=== PATIENT | male | born 1990 | race Caucasian/White ===

== ENCOUNTER 2019-07-09 11:12 | Emergency (ER) | payer OTHER ==
[~2019-07-09] VITALS: Ht 172.7 cm; Wt 74.8 kg
[2019-07-09 11:51] LABS: ABSOLUTE LYMPHOCYTES 0.5 thou/uL (0.8-5.3); ABSOLUTE MONOCYTES 0.4 thou/uL (0.0-1.2); ABSOLUTE NEUTROPHILS 3.3 thou/uL (1.6-8.1); BASOPHILS 0.6 %; EOSINOPHILS 0.4 %; HEMATOCRIT 43.5 % (42.0-52.0); HEMOGLOBIN 15.2 gm/dL (14.0-18.0); LYMPHOCYTES 11.8 %; MCH 29.5 pg (26.0-34.0); MCHC 34.9 g/dL (28.0-37.0); MCV 84.4 fL (80.0-100.0); MONOCYTES 10.1 %; MPV 8.3 fl. (7.2-11.1); NUCLEATED RBCS 0 /100WBC; PLATELET COUNT* 162 thou/uL (150-400); POLYS 77.1 %; RBC 5.16 mil/uL (4.50-6.00); RDW-CV 13.1 % (10.5-14.5); WBC 4.3 thou/uL (4.0-11.0)
[2019-07-09 11:57] LABS: CREATININE 1.3 mg/dL (0.6-1.3); POTASSIUM 3.6 mmol/L (3.5-5.1)
[2019-07-09 12:09] LABS: ALBUMIN 4.1 g/dL (3.4-5.0); TOTAL BILIRUBIN 0.4 mg/dL (<0.1-1.0); TOTAL PROTEIN 7.6 g/dL (6.4-8.2)
[2019-07-09 13:03] VITALS: BP 136/70
--- NOTE | 2019-07-10 10:29 | EKG ---
[place] [address] ELECTROCARDIOGRAM REPORT Name: KIRTI SEGUNDO Room: [facility]#: [id number] Admission: 07/09/19 Attend Phys: Discharge: 07/09/19 Date of : [birth year] Date of Service: 07/09/19 1226 Report #: [id number] THIS REPORT FOR: //name// [facility] ED Test Date: 2019-07-09 Test Time: 12:26:00 Pat Name: KIRTI SEGUNDO Department: Room: Gender: Binding Stitcher: [facility] : 1990 Requested By: Maximilian David Order Number: [id number] MD: Butch Irving Measurements Intervals [place] Rate: 81 P: 54 [place]: 148 QRS: 50 QRSD: 88 T: -34 QT: 373 QTc: 433 Interpretive Statements Sinus rhythm Borderline T abnormalities, inferior leads Baseline wander in lead(s) V2,V3 No previous ECG available for comparison Electronically Signed On 07-10-2019 10:28:26 CDT by Butch Irving [email or web address] <ELECTRONICALLY SIGNED> By: Butch Irving MD, [facility] 07/10/19 1028 1226 1226 Butch Irving MD, [facility] /EPI
--- NOTE | 2019-07-10 10:29 | EKG ---
[place] [address] ELECTROCARDIOGRAM REPORT Name: KIRTI SEGUNDO Room: [facility]#: [id number] Admission: 07/09/19 Attend Phys: Discharge: 07/09/19 Date of : [birth year] Date of Service: 07/09/19 1216 Report #: [id number] THIS REPORT FOR: //name// [facility] ED Test Date: 2019-07-09 Test Time: 12:16:21 Pat Name: KIRTI SEGUNDO Department: Room: Gender: Inside Sales Manager: [facility] : 1990 Requested By: Maximilian David Order Number: [id number] MD: Butch Irving Measurements Intervals [place] Rate: 90 P: 52 MO: 131 QRS: 60 QRSD: 94 T: 32 QT: 366 QTc: 448 Interpretive Statements Sinus rhythm Atrial premature complex Borderline T abnormalities, anterior leads No previous ECG available for comparison Electronically Signed On 07-10-2019 10:28:06 CDT by Butch Irving [email or web address] <ELECTRONICALLY SIGNED> By: Butch Irving MD, [facility] 07/10/19 1028 15 15 Butch Irving MD, FACC /EPI
== END 2019-07-09 13:03 | disposition home or self-care (01) ==
LOC: M.ERS 11:12
PROVIDERS: Emergency Medicine Emergency Medical Services
DX: R53.83 Other fatigue (principal)

== ENCOUNTER 2019-08-24 11:33 | Emergency (ER) | payer OTHER ==
[~2019-08-24] VITALS: Ht 172.7 cm; Wt 68.0 kg
[2019-08-24 13:09] LABS: ABSOLUTE LYMPHOCYTES 1.5 thou/uL (0.8-5.3); ABSOLUTE MONOCYTES 0.4 thou/uL (0.0-1.2); ABSOLUTE NEUTROPHILS 3.2 thou/uL (1.6-8.1); BASOPHILS 0.8 %; EOSINOPHILS 0.4 %; LYMPHOCYTES 29.6 %; MCH 29.8 pg (26.0-34.0); MCHC 34.8 g/dL (28.0-37.0); MCV 85.6 fL (80.0-100.0); MONOCYTES 7.4 %; MPV 9.7 fl. (7.2-11.1); NUCLEATED RBCS 0 /100WBC; PLATELET COUNT* 188 thou/uL (150-400); POLYS 61.8 %; RBC 5.37 mil/uL (4.50-6.00); RDW-CV 13.3 % (10.5-14.5); WBC 5.2 thou/uL (4.0-11.0)
[2019-08-24 13:16] LABS: CALCIUM 9.4 mg/dL (8.5-10.1); CREATININE 1.6 mg/dL (0.6-1.3); POTASSIUM 3.9 mmol/L (3.5-5.1)
[2019-08-24 13:17] LABS: APTT 25.5 Seconds (25.0-31.3); INR 1.1; PROTIME 10.8 Seconds (9.20-11.50)
[2019-08-24 13:27] LABS: ALBUMIN 4.5 g/dL (3.4-5.0); TOTAL BILIRUBIN 1.3 mg/dL (<0.1-1.0); TOTAL PROTEIN 7.8 g/dL (6.4-8.2)
[2019-08-24 14:21] LABS: URINE BILIRUBIN NEGATIVE (Negative); URINE BLOOD NEGATIVE (Negative); URINE CLARITY CLEAR; URINE COLOR YELLOW; URINE GLUCOSE-RANDOM NEGATIVE (Negative); URINE KETONES NEGATIVE (Negative); URINE LEUKOCYTES-REFLEX NEGATIVE (Negative); URINE NITRITE-REFLEX NEGATIVE (Negative); URINE PROTEIN NEGATIVE (Negative); URINE UROBILINOGEN 0.2 E.U./dl (0.2-1.0)
[2019-08-24 14:26] VITALS: BP 115/80
--- NOTE | 2019-08-24 14:32 | EKG ---
[place] [address] ELECTROCARDIOGRAM REPORT Name: KIRTI SEGUNDO Room: [facility]#: [id number] Admission: 08/24/19 Attend Phys: Discharge: 08/24/19 Date of : [birth year] Date of Service: 08/24/19 1151 Report #: [id number] THIS REPORT FOR: //name// [facility] ED Test Date: 2019-08-24 Test Time: 11:51:17 Pat Name: KIRTI SEGUNDO Department: Room: Gender: Vp Training: [place] : 1990 Requested By: Douglas Rosenberg Order Number: [id number] MD: Donnie Clemons Measurements Intervals [place] Rate: 87 P: 57 PA: 133 QRS: 69 QRSD: 80 T: 7 QT: 443 QTc: 533 Interpretive Statements Sinus rhythm Borderline T wave abnormalities Prolonged QT interval Baseline wander in lead(s) II,III,aVF Compared to ECG 07/09/2019 12:26:00 Prolonged QT interval now present T-wave abnormality still present Electronically Signed On 08-24-2019 14:30:50 CDT by Donnie Clemons [email or web address] <ELECTRONICALLY SIGNED> By: Donnie Clemons MD, FACC 08/24/19 1430 1151 1151 Donnie Clemons MD, FACC /EPI
== END 2019-08-24 14:26 | disposition home or self-care (01) ==
LOC: M.ERS 11:33
PROVIDERS: Family Medicine
DX: R53.1 Weakness (principal); R42 Dizziness and giddiness

== ENCOUNTER 2020-07-07 16:47 | Emergency (ER) | payer OTHER ==
[~2020-07-07] VITALS: Ht 172.7 cm; Wt 79.4 kg
[2020-07-07 16:54] VITALS: BP 143/88
[2020-07-07] MEDS ORDERED: CELEXA 10 MG TA10 M1 PO (16:55)
[2020-07-07] MEDS ORDERED: IBUPROFEN 800800 M1 PO (18:08)
== END 2020-07-07 18:23 | disposition home or self-care (01) ==
LOC: M.ERS 16:47
DX: S93.491A Sprain of other ligament of right ankle, initial encounter (principal); W18.39XA Other fall on same level, initial encounter; Y93.89 Activity, other specified; Y92.89 Other specified places as the place of occurrence of the external cause; Y99.8 Other external cause status